=== PATIENT | male | born 1970 | race Caucasian/White ===

== ENCOUNTER → 2017-05-18 | Day surgery (SDC) | payer OTHER ==
[2017-05-16 15:41] VITALS: BMI 25.0
[~2017-05-18] VITALS: Ht 175.3 cm; Wt 77.2 kg
[~2017-05-18] MED LIST: ATROPINE SULFATE 0.1 MG/ML 5ML SYR IV PRN; Buspar PO; CYCL5TAB PO; Elavil PO; EpHEDrine SULFATE INJ 50 MG/ML AMP IV PRN; FENTANYL CITRATE INJ 50 MCG/1 ML 2 ML VIAL ONE; FLUO20CA35 PO; KETAMINE HCL INJ 50 MG/ML 10 ML VIAL ONE; LACTATED RINGER'S 1000ML 1,000 ML IV SCH; MIDAZOLAM HCL 1 MG/ML 2ML VIAL ONE; PROPOFOL IV EMULSION 10 MG/ML 20 ML VIAL IV ONE; Propranolol PO
[2017-05-18 06:32] VITALS: BP 142/90; PULSE 78; TEMP 36.5; O2SAT 95; Ht 175.3 cm; Wt 77.2 kg
[2017-05-18 08:40] VITALS: BP 106/74; PULSE 80; TEMP 36.5; O2SAT 96
--- NOTE | 2017-05-18 09:06 | Anesthesiology Progress Note ---
Anesthesia Post Op Note Date & Time May 18, 2017 at 09:06 Vital Signs Pain Intensity: 0 Vital Signs Past 12 Hours Date Time Temp Pulse Resp B/P (MAP) Pulse Ox O2 Delivery O2 Flow Rate FiO2 05/18/17 08:40 36.5 80 18 106/74 96 Room Air 05/18/17 06:32 36.5 78 18 142/90 (107) 95 Room Air Notes Mental Status: alert / awake / arousable, participated in evaluation Pt Amnestic to Procedure: Yes Nausea / Vomiting: adequately controlled Pain: adequately controlled Airway Patency, RR, SpO2: stable & adequate BP & HR: stable & adequate Hydration State: stable & adequate Anesthetic Complications: no major complications apparent
[2017-05-18 09:10] VITALS: BP 120/81; PULSE 63; TEMP 36.5; O2SAT 98
--- NOTE | 2017-05-18 09:12 | Anesthesiology Progress Note ---
Anesthesia Progress Note Date of Service May 18, 2017. Progress Notes Procedure had to be aborted as pt was unable to stop moving.We are only able to sedate the patient mild -moderately,as we are unable to deliver a general anesthetic in the MRI suite.
[2017-05-18 10:04] VITALS: BP 126/86; PULSE 76; TEMP 36.5; O2SAT 96
== END | disposition home or self-care (01) ==
LOC: C.ACU 06:09
PROVIDERS: ATTEND Internal Medicine
DX: M48.52XS Collapsed vertebra, not elsewhere classified, cervical region, sequela of fracture (principal); M25.511 Pain in right shoulder; G81.93 Hemiplegia, unspecified affecting right nondominant side; Z53.09 Procedure and treatment not carried out because of other contraindication; I10 Essential (primary) hypertension; G47.33 Obstructive sleep apnea (adult) (pediatric); F43.10 Post-traumatic stress disorder, unspecified; F17.200 Nicotine dependence, unspecified, uncomplicated; G47.30 Sleep apnea, unspecified